=== PATIENT | male | born 1980 | race Caucasian/White ===

== ENCOUNTER 2022-05-01 08:37 | Emergency (ER) | payer BC ==
[2022-05-01 09:43] LABS: HEMOGLOBIN 14.5 gm/dl (14.0-17.5); RED BLOOD COUNT 4.67 M/UL (4.20-5.50); WHITE BLOOD COUNT 6.3 K/UL (4.5-11.0)
[2022-05-01 10:11] LABS: BUN/CREATININE RATIO 17 (0-10)
== END 2022-05-01 14:04 | disposition home or self-care (01) ==
LOC: ER1 08:37
PROVIDERS: Physician Assistant
DX: R10.9 Unspecified abdominal pain (principal); Z88.0 Allergy status to penicillin; Z88.8 Allergy status to other drugs, medicaments and biological substances
CPT/HCPCS: 80053; 81001; 85025; 99284; Q9967

== ENCOUNTER → 2022-05-30 | Day surgery (SDC) | payer BC ==
[~2022-05-30] VITALS: Ht 175.3 cm; Wt 102.1 kg
== END | disposition home or self-care (01) ==
LOC: OR 07:32
DX: K31.9 Disease of stomach and duodenum, unspecified (principal); K21.00 Gastro-esophageal reflux disease with esophagitis, without bleeding; K22.10 Ulcer of esophagus without bleeding; K59.00 Constipation, unspecified; K76.0 Fatty (change of) liver, not elsewhere classified; E66.9 Obesity, unspecified; Z88.0 Allergy status to penicillin; Z88.8 Allergy status to other drugs, medicaments and biological substances; Z68.33 Body mass index [BMI] 33.0-33.9, adult
CPT/HCPCS: J2704; J3010; J7040